=== PATIENT | female | born 1975 | race Caucasian/White ===

== ENCOUNTER 2024-11-22 21:14 | Emergency (ER) | payer BC, SELFPAY ==
--- OUTSIDE RECORDS SUMMARY | 2018-08-26 08:35 | XMS_ITS | Continuity of Care Document ---
Author Organization [facility] Address [address] [place] [address] Phone Care Team Providers Care Corporate Giving Manager Name Role Phone Nahed Anguiano APN, APN Unavailable Unavail able Procedures Procedure Date IO-Holter 24 Hr Echo, Complete, Interp [place] [facility] Product IO-Stress Interpretation, [facility] IO-Stress Supervision, [facility] 017 [place] [facility] Product Advance Directives Directive Yes / No Effective Date File Name No Information Encounters Encounter Description Practice Location Reason(s) For Visit Diagnoses Date Provider Providers Copied on Encounter [facility], [address], [place], [address], [place] tel:[phone] Addison CVM No Information 9 Silvio Dockery. [facility], [address], [place], [place], [id number], [place]. tel:[phone] [facility], [address], [place], [address], [place] tel:[phone] [place] CV No Information 8 Barber Wong. [facility], [address], [place], [place], [id number], [place]. tel:[phone] Referring Provider: Harmony Aparicio [facility] [address], [place], [address]. tel:[phone] [facility], [address], [place], [address], [place] tel:[phone] Reyn[place] CVM No Information Lorna Hernandez. [facility], [address], [place], [place], [id number], [place]. tel:[phone] Referring Provider: Sophia Ronquillo, [address], [place], [address]. tel:[phone] [facility], [address], [place], [address], [place] tel:[phone] Reyn[place] CVM 2nd Floor No Information Deckarthikt DAVID Zhao. [facility], [address], [place], [place], [id number], [place]. tel:[phone] [facility], [address], [place], [address], [place] tel:[phone] Reynaga CVM No Information 7 Tatyana Betancourt. [facility], [address], [place], [place], [id number], [place]. tel:[phone] Referring Provider: Sophia Ronquillo, [address], [place], [address]. tel:[phone] [facility], [address], [place], [address], [place] tel:[phone] Reynaga CVM 2[address] Floor No Information 7 Deckert DAVID Cece. [facility], [address], [place], [place], [id number], [place]. tel:[phone] Family History Family Member Type Diagnosis Age At Onset No Information Payers Payer name Insurance type Covered alliance party ID Halima theodore(s) [facility] [id number] Social History Type Description Quantity Date Captured Comments Alcohol Use Details Unknown Caffeine Use Details Unknown Tobacco Use Status No Information Smoking Status No Information Sex Female Chief Complaint And Reason For Visit No Information Reason For Referral Reason For Referral No Information History Of Present Illness Encounter Date Complaint History Of Prese nt Illness No Information Functional Status Date Functional Assessmen t No Information Instructions Date Instruction Additional Infor mation No Information Assessments Type Assessment Date No Information Patient Care Teams Name Effective Dates (start - stop) Status Members No Information
--- OUTSIDE RECORDS SUMMARY | 2023-06-07 05:15 | XMS_ITS ---
Author Organization [facility] Address [address] [place] [address] Care Team Providers Care Heating And Ventilating Tender Name Role Phone Harmony Aparicio Primary Care Provider Serafin Rea Unavailable [phone] Jacqui Jimenez Unavailable [phone] REASON FOR VISIT 6mn hl prolia Medications Medication SIG (Take, Route, Frequency, Duration) Notes Start Date End Date Status Effexor XR 75 MG 3 capsule with food Orally Once a day Active Calcium 600 MG 1 tablet with meals Orally Once a day Active Vitamin D 1000 UNIT 1 tablet Orally Once a day Active Prolia 60 MG/ML 60mg Subcutaneous in ject q 6 months; Duration: 180 days 10/23/2022 Active buPROPion HCl ER (SR) 150 MG 1 tablet Orally Twice a day Active Venlafaxine HCl ER 225 MG 1 tablet with food Orally Once a day Active hydrOXYzine HCl 10 MG 1 tablet at bedtim e as needed Orally Once a day Active Cephalexin 500 MG 1 tablet Orally Four times a day; Duration: 5 day(s) 05/25/2022 Active ALPRAZolam Active Omeprazole 40 MG 1 capsule 30 minutes before morning meal Orally Once a day Active Encounters Encounter Location Date Provider Diagnosis [facility] [address] [place] [address] 06/07/2023 Jacqui Jimenez Plan Of Treatment No Information Progress Notes * Laura COSTA ADOB: [birth year] (49 yo F)Acc No.[id number]:06/07/2023 Progress Notes Patient: Laura SORIANO Provider: Chrissy Jimenez APRN :1975 A ge:47 Y S ex:Female Date:06/07/2023 Address:[address] [place] [address] BRITTANI LOPES [phone] Pcp:Harmony Aparicio Subjective: * Chief Complaints: * 1 . 6mn hl prolia. * Medical History: * Medications: T aking Venlafaxine HCl ER 225 MG Tablet Extended Release 24 Hour 1 tablet with food Orally Once a day , Taking hydrOXYzine HCl 10 MG Tablet 1 tablet at bedtime as needed Orally Once a day , Taking Cephalexin 500 MG Tablet 1 tablet Orally Four times a day , Taking ALPRAZolam , Taking Omeprazole 40 MG Capsule Delayed Release 1 capsule 30 minutes before morning meal Orally Once a day , Taking buPROPion HCl ER (SR) 150 MG Tablet Extended Release 12 Hour 1 tablet Orally Twice a day , Taking Effexor XR 75 MG Capsule Extended Release 24 Hour 3 capsule with food Orally Once a day , Taking Calcium 600 MG Tablet 1 tablet with meals Orally Once a day , Taking Vitamin D 1000 UNIT Tablet 1 tablet Orally Once a day , Taking Prolia 60 MG/ML Solution Prefilled Syringe 60mg Subcutaneous inject q 6 months Objective: * Vitals: Assessment: Plan: * Treatment: * Care Plan Details* * Electronic signature of Ramona Jimenez APRN on 11/23/2024 at 12:57 AM CDT Sign off status: Pending * Provider: Chrissy Jimenez APRN Date: 0 06/07/2023 Generated for Eden johnson/Al/Shavon on: 0 11/23/2024 12:57 AM CDT
--- OUTSIDE RECORDS SUMMARY | 2023-11-22 04:30 | XMS_ITS ---
Author Organization [facility]ING [facility]AC[facility] [employer] [facility] Address [address] [place] [address] Care Team Providers Care Vice Principal Name Role Phone López Quinn Primary Care Provider REASON FOR VISIT outside labs, pt will bring order in [facility] MEDICATIONS Medication SIG (Take, Route, Frequency, Duration) Notes Start Date End Date Status predniSONE 20 MG 1 tablet Orally BID 06/05/2021 Not-Taking Zithromax 250 MG 2 tablet on the first day, then 1 tablet daily for 4 days Orally Once a day for 5 day(s) 06/05/2021 Not-Taking Mupirocin 2 % apply by topical route 3 times every day a small amount to the affected area External 08/24/2020 Not-Taking Bactrim DS 800-160 MG take 1 tablet by oral route every 12 hours Oral 08/24/2020 Not-Taking valACYclovir HCl 1 GM 2 tablet Orally BI D for one day 06/05/2021 Not-Taking Actonel 150 MG 1 tablet at least 30 minutes before the first food or drink, other than water, of the day Orally for 30 day(s) 09/24/2022 Not-Taking oxyCODONE HCl 5 MG 1 tablet as needed Orally every 6 hrs Not-Taking Terbinafine HCl 250 MG 1 tablet Orally Once a day 09/24/2022 Active Rachel 120 IN THE AM 6O AT NIGHT 09/24/2022 Active hydrOXYzine HCl 10 MG TAKE ONE TO TWO TABLETS BY MOUTH AT BEDTIME Oral for 30 Days Active Wellbutrin SR 150 MG 1 tablet in the morning Orally BID for 60 days Active ALPRAZolam 0.5 MG 1 tablet Orally Twice a day Active Omeprazole 40 MG 1 capsule 30 minutes before morning meal Orally Once a day Active Venlafaxine HCl ER 150 MG 1 tablet with food Orally Once a day Active traZODone HCl 100 MG 1 tablet at bedtime Orally Once a day Active Prolia 60 MG/ML as directed Subcutaneous Active Augmentin 875-125 MG 1 tablet Orally every 12 hrs for 10 day(s) 12/18/2022 Active predniSONE 20 MG 1 tablet Orally twice a day 12/13/2022 Active Zithromax 250 MG as directed Orally 12/13/2022 Active Encounters Encounter Location Date Provider Diagnosis [facility] [address] [place] [address] 11/22/2023 López Quinn Well adult Z00. 00 ASSESSMENTS Encounter Date Diagnosis Assessment Notes Treatment Notes Treatment Clinical Notes Section Notes 11/22/2023 Well adult (ICD-10 - Z00.00) PLAN OF TREATMENT No Information Procedure Notes * Category Sub-Category Detail Notes Venipuncture Venipuncture: verbal consent o btained, Procedure Explained, Pt Position, sitting, 23 g butterfly, RT AC Space, # of Attempts 1, Successful, Standard Precautions Used, Pressure and Clean Bandage Applied, No Redness/Swelling at Site, Pt Tolerated Well Progress Notes * Crystal COSTAB: 5 (48 yo F)Acc No.[id number]:11/22/2023 Patient: Laura COSTA Provider: López Quinn DO :1975 Age:48 Y Sex:Female Date:11/22/2023 Address:[address] [id number] Subjective: * Chief Complaints: * outside labs, pt will bring order in [facility] * Medical History: * Surgical History: * Hospitalization/Major Diagno stic Procedure: * Medications: TakingProlia 60 MG/ML Solution Prefilled Syringe as directed Subcutaneous traZODone HCl 100 MG Tablet 1 tablet at bedtime Orally Once a day Venlafaxine HCl ER 150 MG Tablet Extended Release 24 Hour 1 tablet with food Orally Once a day Omeprazole 40 MG Capsule Delayed Release 1 capsule 30 minutes before morning meal Orally Once a day ALPRAZolam 0.5 MG Tablet 1 tablet Orally Twice a day Wellbutrin SR 150 MG Tablet Extended Release 12 Hour 1 tablet in the morning Orally BID hydrOXYzine HCl 10 MG Tablet TAKE ONE TO TWO TABLETS BY MOUTH AT BEDTIME Oral Rachel Terbinafine HCl 250 MG Tablet 1 tablet Orally Once a day Zithromax 250 MG Tablet as directed Orally predniSONE 20 MG Tablet 1 tablet Orally twice a day Augmentin 875-125 MG tablet 1 tablet Orally every 12 hrs Taking Prolia 60 MG/ML Solution Prefilled Syringe as directed Subcutaneous Taking traZODone HCl 100 MG Tablet 1 tablet at bedtime Orally Once a day Taking Venlafaxine HCl ER 150 MG Tablet Extended Release 24 Hour 1 tablet with food Orally Once a day Taking Omeprazole 40 MG Capsule Delayed Release 1 capsule 30 minutes before morning meal Orally Once a day Taking ALPRAZolam 0.5 MG Tablet 1 tablet Orally Twice a day Taking Wellbutrin SR 150 MG Tablet Extended Release 12 Hour 1 tablet in the morning Orally BID Taking hydrOXYzine HCl 10 MG Tablet TAKE ONE TO TWO TABLETS BY MOUTH AT BEDTIME Oral Taking Rachel Taking Terbinafine HCl 250 MG Tablet 1 tablet Orally Once a day Taking Zithromax 250 MG Tablet as directed Orally Taking predniSONE 20 MG Tablet 1 tablet Orally twice a day Taking Augmentin 875- 125 MG tablet 1 tablet Orally every 12 hrs Not-TakingActonel 150 MG Tablet 1 tablet at least 30 minutes before the first food or drink, other than water, of the day Orally oxyCODONE HCl 5 MG Tablet Abuse-Deterrent 1 tablet as needed Orally every 6 hrs Bactrim DS 800-160 MG Tablet take 1 tablet by oral route every 12 hours Oral Mupirocin 2 % Ointment apply by topical route 3 times every day a small amount to the affected area External Zithromax 250 MG Tablet 2 tablet on the first day, then 1 tablet daily for 4 days Orally Once a day predniSONE 20 MG Tablet 1 tablet Orally BID valACYclovir HCl 1 GM Tablet 2 tablet Orally BID for one day Not-Taking Actonel 150 MG Tablet 1 tablet at least 30 minutes before the first food or drink, other than water, of the day Orally Not-Taking oxyCODONE HCl 5 MG Tablet Abuse-Deterrent 1 tablet as needed Orally every 6 hrs Not-Taking Bactrim DS 800-160 MG Tablet take 1 tablet by oral route every 12 hours Oral Not-Taking Mupirocin 2 % Ointment apply by topical route 3 times every day a small amount to the affected area External Not-Taking Zithromax 250 MG Tablet 2 tablet on the first day, then 1 tablet daily for 4 days Orally Once a day Not-Taking predniSONE 20 MG Tablet 1 tablet Orally BID Not-Taking valACYclovir HCl 1 GM Tablet 2 tablet Orally BID for one day Objective: Assessment: * Assessment: 1. Well adult - Z00.00 Plan: * Treatment: * Procedures: Venipuncture: Venipuncture: verbal consent obtained, Procedure Explained, Pt Position, sitting, 23 g butterfly, RT AC Space, # of Attempts 1, Successful, Standard Precautions Used, Pressure and Clean Bandage Applied, No Redness/Swelling at Site, Pt Tolerated Well. * Procedure Codes: 48116 VENIPUNCT, ROUTINE* * Billing Information: * Visit Code: * Procedure Codes: 40077 VENIPUNCT, ROUTINE*. * Sign off status: Completed true * Provider: López Quinn DO Date: 11/22/2023
--- OUTSIDE RECORDS SUMMARY | 2023-12-06 03:45 | XMS_ITS ---
Author Organization BILLING FACILITY [employer] [facility] Address [address] [place] [address] Care Team Providers Care Navy Airspace Officer Name Role Phone López Quinn Primary Care Provider ALLERGIES No Known Allergies REASON FOR VISIT AHA MEDICATIONS Medication SIG (Take, Route, Frequency, Duration) Notes Start Date End Date Status Wellbutrin SR 150 MG 1 tablet in the morning Orally BID for 60 days Active hydrOXYzine HCl 10 MG TAKE ONE TO TWO TABLETS BY MOUTH AT BEDTIME Oral for 30 Days Active Rachel 120 IN THE AM 6O AT NIGHT 09/24/2022 Active Prolia 60 MG/ML as directed Subcutaneous Active traZODone HCl 100 MG 1 tablet at bedtime Orally Once a day Active Venlafaxine HCl ER 150 MG 1 tablet with food Orally Once a day Active Omeprazole 40 MG 1 capsule 30 minutes before morning meal Orally Once a day Active ALPRAZolam 0.5 MG 1 tablet Orally Twic e a day Active Triamcinolone Acetonide 0.1 % 1 application Externally Two times a Week Active Zepbound 5 MG/0.5ML 0.5 mL Subcutaneous Active SOCIAL HISTORY Tobacco Use: Social History Observation Description Date Details (start date - stop date) Former Smoker NA - NA Sex Assigned At : Social History Observation Description Sex Assigned At Unknown Tobacco Use/Smoking Question Answer Notes Are you a former user VITAL SIGNS Temperature 97.2 degrees Fahrenheit 12/06/19 24 Heart Rate 97 /min 12/06/2023 Oximetry 98 % 12/06/2023 Blood pressure systolic 116 mm Hg 12/06/19 24 Blood pressure diastolic 78 mm Hg 024 Weight 144 lbs 12/06/2023 Height 65 in 12/06/2023 BMI 23.96 12/06/2023 Weight-kg 65.32 kg 12/06/2023 Encounters Encounter Location Date Provider Diagnosis [facility] [address] [place] [address] 12/06/2023 López Quinn Well adult exam Z00. 00 ASSESSMENTS Encounter Date Diagnosis Assessment Notes Treatment Notes Treatment Clinical Notes Section Notes 12/06/2023 Well adult exam (ICD-10 - Z00.00) Her pap and mammo are up to date. Cologuard was done. Labs are back. PLAN OF TREATMENT No Information Progress Notes * Crystal COSTAB: 5 (48 yo F)Acc No.[id number]:12/06/2023 Patient: Laura COSTA Provider: López Quinn DO :1975 Age:48 Y Sex:Female Date:12/06/2023 Address:[address] [place], [place] [id number] Subjective: * Chief Complaints: * 1. AHA. * HPI: Depression/Anxiety Screening: PHQ-2 (2015 Edition)* Little interest or pleasure in doing things? Not at all, Feeling down, depressed or hopeless? Not at all, Total score: 0. Depression Screening: TANK-7 (2018 Edition) Feeling nervous, anxious, or on edge Not at all, Not being able to stop or control worrying Not at all, Worrying too much about different things Not at all, Trouble relaxing Not at all, Being so restless that it is hard to sit still Not at all, Becoming easily annoyed or irritable Not at all, Feeling afraid as if something awful might happen Not at all, Total TANK-7 Score 0, Interpretation of Total (0 to 4) No Anxiety. *: Patient is here today for an AHA. SHe is doing well and has no other concerns today. Please refer to the negative ROS. * ROS: Patient denies any headaches, visual changes, chest pain, shortness of breath, syncope, abdominal pain, urinary symptoms or neurological symptoms. * Medical History: Osteoporosis. * Surgical History: open reduction internal fixation (ORIF) Right leg 10/14/21. * Family History: Father: diagnosed with Hypertension. Migrated Family History: diagnosed with Hypertension. Maternal G F: diagnosed with Hypertension. * Social History: Tobacco Use: Tobacco Use/Smoking Are you a former user. Habits (drugs/alcohol/caffeine): Caffeine: yes . Alcohol: no . * Medications: Taking Triamcinolone Acetonide 0.1 % Cream 1 application Externally Two times a Week , Taking Zepbound 5 MG/0.5ML Solution Auto-injector 0.5 mL Subcutaneous , Taking Prolia 60 MG/ML Solution Prefilled Syringe as directed Subcutaneous , Taking traZODone HCl 100 MG Tablet 1 tablet at bedtime Orally Once a day , Taking Venlafaxine HCl ER 150 MG Tablet Extended Release 24 Hour 1 tablet with food Orally Once a day , Taking Omeprazole 40 MG Capsule Delayed Release 1 capsule 30 minutes before morning meal Orally Once a day , Taking ALPRAZolam 0.5 MG Tablet 1 tablet Orally Twice a day , Taking Wellbutrin SR 150 MG Tablet Extended Release 12 Hour 1 tablet in the morning Orally BID , Taking hydrOXYzine HCl 10 MG Tablet TAKE ONE TO TWO TABLETS BY MOUTH AT BEDTIME Oral , Taking Rachel , Discontinued Terbinafine HCl 250 MG Tablet 1 tablet Orally Once a day , Discontinued Zithromax 250 MG Tablet as directed Orally , Discontinued predniSONE 20 MG Tablet 1 tablet Orally twice a day , Discontinued Augmentin 875-125 MG tablet 1 tablet Orally every 12 hrs , Discontinued Actonel 150 MG Tablet 1 tablet at least 30 minutes before the first food or drink, other than water, of the day Orally , Discontinued oxyCODONE HCl 5 MG Tablet Abuse-Deterrent 1 tablet as needed Orally every 6 hrs , Discontinued Bactrim DS 800-160 MG Tablet take 1 tablet by oral route every 12 hours Oral , Discontinued Mupirocin 2 % Ointment apply by topical route 3 times every day a small amount to the affected area External , Discontinued Zithromax 250 MG Tablet 2 tablet on the first day, then 1 tablet daily for 4 days Orally Once a day , Discontinued predniSONE 20 MG Tablet 1 tablet Orally BID , Discontinued valACYclovir HCl 1 GM Tablet 2 tablet Orally BID for one day , Medication List reviewed and reconciled with the patient * Allergies: N.K.A. Objective: * Vitals: Temp:97.2F, HR:97, Oxygen sat:98%, BP:116/78mm Hg, Wt:144lbs, Wt Chg: -45 lbs, Wt Chg %: -23.81%, Ht:65in, BMI:23.96, Wt-k.32 kg. * Examination: General Examination *: GENERAL APPEARANCE: alert and oriented, no acute distress. HEAD: normocephalic. EYES: extraocular movements intact, pupils equal/round/reactive to light. EARS: auditory canal clear, light reflex present, tympanic membrane intact. SINUSES: non-tender. NOSE: nares patent, no lesions. ORAL CAVITY: mucosa moist, no lesions. THROAT: no erythema, tonsils normal, uvula midline. NECK/THYROID: neck supple, no thyromegaly, no carotid bruits. LYMPH NODES: no anterior cervical adenopathy. HEART: regular rate and rhythm, no murmurs, no gallops. LUNGS: clear to auscultation, good air movement, no respiratory distress. CHEST: no deformity. ABDOMEN: soft, non-tender, normal bowel sounds, non-tender. BACK: full range of motion. EXTREMITIES: no edema. PERIPHERAL PULSES: 2+ throughout. NEUROLOGIC: alert, cooperative, oriented x 3, cranial nerves II-XII grossly normal. MUSCULOSKELETAL: no swelling or deformity. PSYCH: affect normal, cognitive function intact, mood normal. Assessment: * Assessment: 1. Well adult exam - Z00.00 (Primary) Her pap and mammo are up to date. Cologuard was done. Labs are back. Plan: * Treatment: * Procedure Codes: 3014F Breast Cancer Screening, 3015F Cervical Cancer Screening, 3017F Colorectal Cancer Screening, 3351F Depression Screening, 61683 Anxiety Screening * Billing Information: * Visit Code: 83155 Prev visit es tage 40 - 64 comprehensive exam. * Procedure Codes: 3014F Breast Cancer Screening. 3015F Cervical Cancer Screening. 3017F Colorectal Cancer Screening. 3351F Depression Screening - NEGATIVE Screening (PHQ9 <10). 13717 Anxiety Screening. * Sign off status: Completed true * Provider: López Quinn DO Date: 12/06/2023 History and Physical Notes * HPI (History of Present Illness) Category Sub-Category Detail Notes Category Not es Depression/Anxiety Screening PHQ-2 (2015 Edition)* Little interest or pleasure in doing things?: Not at all Feeling down, depressed or hopeless?: No t at all Total score:: 0 Depression Screening TANK-7 (2018 Edition) Feelin g nervous, anxious, or on edge: Not at all Not being able to stop or control worryi ng: Not at all Worrying too much about different things : Not at all Trouble relaxing: Not at all Being so restless that it is hard to sit still: Not at all Becoming easily annoyed or irritable: No t at all Feeling afraid as if something awful kenisha ht happen: Not at all Total TANK-7 Score: 0 Interpretation of Total: (0 to 4) No Anx iety * Patient is here today for an AHA. SHe is doing well and has no other concerns today. Please refer to the negative ROS. Examination Category Sub-Category Detail Notes Category Not es General Examination * GENERAL APPEARANCE: alert and oriented, no acute distress HEAD: normocephalic EYES: extraocular movement s intact, pupils equal/round/reactive to light EARS: auditory canal clear , light reflex present, tympanic membrane intact NOSE: nares patent, no les ions ORAL CAVITY: mucosa moist, no les ions THROAT: no erythema, tonsils normal, uvula midline NECK/THYROID: neck supple, no thyr omegaly, no carotid bruits LYMPH NODES: no anterior cervical adenopathy HEART: regular rate and rhy thm, no murmurs, no gallops LUNGS: clear to auscultatio n, good air movement, no respiratory distress CHEST: no deformity ABDOMEN: soft, non-tender, no rmal bowel sounds, non-tender BACK: full range of motion MUSCULOSKELETAL: no swelling or defor mity EXTREMITIES: no edema PERIPHERAL PULSES: 2+ throughout NEUROLOGIC: alert, cooperative, oriented x 3, cranial nerves II-XII grossly normal PSYCH: affect normal, cogni tive function intact, mood normal SINUSES: non-tender
--- OUTSIDE RECORDS SUMMARY | 2023-12-13 05:30 | XMS_ITS ---
Author Organization [facility] [employer] Address [address] [place] [address] Care Team Providers Care Wet Process Miller Head Name Role Phone Harmony Aparicio Primary Care Provider Serafin Rea Unavailable [phone] REASON FOR VISIT 6 mo labs at [facility] Medications Medication SIG (Take, Route, Frequency, Duration) Notes Start Date End Date Status buPROPion HCl ER (SR) 150 MG 1 tablet Orally Twice a day Active Effexor XR 75 MG 3 capsule with food Orally Once a day Active Calcium 600 MG 1 tablet with meals Orally Once a day Active Vitamin D 1000 UNIT 1 tablet Orally Once a day Active Prolia 60 MG/ML 60mg Subcutaneous in ject q 6 months; Duration: 180 days 10/23/2022 Active ALPRAZolam Active Omeprazole 40 MG 1 capsule 30 minutes before morning meal Orally Once a day Active Cephalexin 500 MG 1 tablet Orally Four times a day; Duration: 5 day(s) 05/25/2022 Active Venlafaxine HCl ER 225 MG 1 tablet with food Orally Once a day Active hydrOXYzine HCl 10 MG 1 tablet at bedtim e as needed Orally Once a day Active Aspirin 325 MG 1 tablet Orally Once a day Active Encounters Encounter Location Date Provider Diagnosis [facility] [address] [place] [address] 12/13/2023 Serafin Colbert Plan Of Treatment No Information Progress Notes * Laura COSTA ADOB: [birth year] (49 yo F)Acc No.[id number]:12/13/2023 Progress Notes Patient: Laura SORIANO Provider: Chrissy Colbert PA-C :1975 A ge:48 Y S ex:Female Date:12/13/2023 Address:[address] [place] [address] [phone] Pcp:Harmony Aparicio Subjective: * Chief Complaints: * 1 . 6 mo labs at [facility]. * Medical History: * Medications: T aking Aspirin 325 MG Tablet 1 tablet Orally Once a day , Taking Venlafaxine HCl ER 225 MG Tablet Extended [...] Care Plan Details* * Electronic signature of Dk Colbert on 11/23/2024 at 12:56 AM CDT Sign off status: Pending * Provider: Chrissy Colbert PA-C Date: 0 12/13/2023 Generated for Eden johnson/Al/Shavon on: 11/23/2024 12:56 AM CDT
--- OUTSIDE RECORDS SUMMARY | 2024-02-26 08:30 | XMS_ITS ---
Author Organization BILLING FACILITY [facility] Address [address] [place] [address] Care Team Providers Care Electrical Lineworker Name Role Phone López Quinn Primary Care Provider Lou Ortega Unavailable [phone] ALLERGIES No Known Allergies REASON FOR VISIT Possible pink eye Right eye, swelling, redness x today MEDICATIONS Medication SIG (Take, Route, Frequency, Duration) Notes Start Date End Date Status Venlafaxine HCl ER 150 MG 1 tablet with food Orally Once a day Active traZODone HCl 100 MG 1 tablet at bedtime Orally Once a day Active Wellbutrin SR 150 MG 1 tablet in the morning Orally BID for 60 days Active ALPRAZolam 0.5 MG 1 tablet Orally Twic e a day Active Omeprazole 40 MG 1 capsule 30 minutes before morning meal Orally Once a day Active Zepbound 5 MG/0.5ML 0.5 mL Subcutaneous Active Triamcinolone Acetonide 0.1 % 1 application Externally Two times a Week Active Fluconazole 150 MG 1 tablet when antibiotics are complete, then repeat in 72 hours Orally 02/26/2024 Active predniSONE 20 MG 1 tablet Orally ever y 12 hours for 5 days 02/26/2024 Active Prolia 60 MG/ML as directed Subcutaneous Active Amoxicillin-Pot Clavulanate 875-125 MG 1 tablet Orally every 12 hrs for 10 days 02/26/2024 Active predniSONE 20 MG 1 tablet Orally ever y 12 hours for 5 days 02/26/2024 Active Rachel 120 IN THE AM 6O AT NIGHT 09/24/2022 Active hydrOXYzine HCl 10 MG TAKE ONE TO TWO TABLETS BY MOUTH AT BEDTIME Oral for 30 Days Active Fluconazole 150 MG 1 tablet when antibiotics are complete, then repeat in 72 hours Orally 02/26/2024 Active VITAL SIGNS Temperature 97.2 degrees Fahrenheit 02/26/20 24 Heart Rate 73 /min 02/26/2024 Oximetry 98 % 02/26/2024 Blood pressure systolic 120 mm Hg 02/26/20 24 Blood pressure diastolic 84 mm Hg 024 Weight 143 lbs 02/26/2024 Height 65 in 02/26/2024 BMI 23.79 02/26/2024 Weight-kg 64.86 kg 02/26/2024 Encounters Encounter Location Date Provider Diagnosis [facility] [address] [place] [address] 02/26/2024 Lou Ortega Dermatitis L30. 9 ASSESSMENTS Encounter Date Diagnosis Assessment Notes Treatment Notes Treatment Clinical Notes Section Notes 02/26/2024 Dermatitis (ICD-10 - L30.9) Meds sent to our pharmacy, she will call with any concerns. Antibiotics dispensed as well due to her history. Recommended she f/u with her block chopper hand PLAN OF TREATMENT Medication Medication Name Sig Start Date Stop Date Notes Fluconazole 150 MG 1 tablet when antibi otics are complete, then repeat in 72 hours Orally 02/26/2024 predniSONE 20 MG 1 tablet Orally ever y 12 hours for 5 days 02/26/2024 Amoxicillin-Pot Clavulanate 875-125 MG 1 tablet Orally every 12 hrs for 10 days 02/26/2024 predniSONE 20 MG 1 tablet Orally ever y 12 hours for 5 days 02/26/2024 Fluconazole 150 MG 1 tablet when antibi otics are complete, then repeat in 72 hours Orally 02/26/2024 Treatment Notes Assessment Notes Dermatitis Meds sent to our [facility], she will call with any concerns. Antibiotics dispensed as well due to her history. Recommended she f/u with her block chopper hand Progress Notes * Treva COSTAJoseB: 5 (48 yo F)Acc No.[id number]:02/26/2024 Patient: Laura COSTA Provider: Lou Ortega NP :1975 Age:48 Y Sex:Female Date:02/26/2024 Address:[address] [place], [place] [id number] Pcp:López Quinn Subjective: * Chief Complaints: * 1. Possible pink eye Right eye, swelling, redness x today. * HPI: Depression/Anxiety Screening: PHQ-2 (2015 Edition)* [...] Total (0 to 4) No Anxiety. *: Laura is here with itching and redness on her right upper eyelid. She also has a couple on her bilateral arms. she has a hx of this in the past. Was initially thought to be bug bites, but she continued to get them randomly. Has been seen by derm and the areas have been biopsied. Told her they were inflammation. She has been hospitalized in the past for cellulitis following this in the past. She is not having any fevers. * ROS: General/Constitutional: General See HPI. * Medical History: Osteoporosis. * Surgical History: open reduction internal fixation (ORIF) Right leg 10/14/21. * Family History: Father: diagnosed with Hypertension. Migrated Family History: diagnosed with Hypertension. Maternal G F: diagnosed with Hypertension. * Medications: Taking Triamcinolone Acetonide 0.1 % [...] AT BEDTIME Oral , Taking Rachel , Medication List reviewed and reconciled with the patient * Allergies: N.K.A. Objective: * Vitals: Temp:97.2F, HR:73, Oxygen sat:98%, BP:120/84mm Hg, Wt:143lbs, Wt Chg: -1 lbs, Wt Chg %: -0.69%, Ht:65in, BMI:23.79, Wt-k.86 kg. * Examination: General Examination *: GENERAL APPEARANCE: See HPI. SKIN: Erythema noted to the right upper eyelid. It is not warm to the touch and appearing to be inflammation as opposed to a secondary infection. Assessment: * Assessment: 1. Dermatitis - L30.9 (Primary) Plan: * Treatment: * Billing Information: * Visit Code: 94682 Level 4 Est Patient Acute Care. * Procedure Codes: * Sign off status: Completed true * Provider: Lou Ortega NP Date: 02/26/2024 History and Physical Notes * HPI (History [...] (0 to 4) No Anx iety * Laura is here wi th itching and redness on her right upper eyelid. She also has a couple on her bilateral arms. she has a hx of this in the past. Was initially thought to be bug bites, but she continued to get them randomly. Has been seen by derm and the areas have been biopsied. Told her they were inflammation. She has been hospitalized in the past for cellulitis following this in the past. She is not having any fevers Examination Category Sub-Category Detail Notes Category Not es General Examination * GENERAL APPEARANCE: See HPI SKIN: Erythema noted to th e right upper eyelid. It is not warm to the touch and appearing to be inflammation as opposed to a secondary infection
[2024-11-22 21:24] VITALS: BP 125/74; PULSE 86; RESP 16; TEMP 36.1; O2SAT 97; BMI 23.2
--- NOTE | 2024-11-22 22:05 | CRLHL7_ITS ---
For Patients: As a result of the Cures Act, medical imaging exams and procedure reports are released immediately into your electronic medical record. You may view this report before your referring provider. If you have questions, please contact your health care provider. Indication: Trauma. Technique: Left knee, 3 views. Comparison: None. Findings/Impression: Bones: Alignment is normal. No displaced fractures or bone lesions. Joint spaces: Mild tricompartmental degenerative changes. Soft tissues: Unremarkable. Dictated by Martin Ontiveros MD @ 11/22/2024 11:56:35 PM (Electronically Signed)
--- NOTE | 2024-11-23 00:24 | ED_ITS ---
HPI - Extremity Injury (Lower) General Date Seen: 11/23/24 Chief Complaint: Extremity Pain/Injury, Lower Stated Complaint: Left kneecap fracture concerns Time Seen by Provider: 11/23/24 00:09 Source: patient Mode of arrival: wheelchair Limitations: no limitations History of Present Illness HPI Narrative: Patient is a 49-year-old female presenting for left knee pain. She states earlier today she was on a hike when she fell so at [employer] [place] or water fall. Did not realize she hurt her knee and 1st and was able to walk but not long after she was unable to stand due to the pain. Has not been able to put much weight on the pain since then. States the pain is 10/10 pain. Has not had previous injuries to this knee. Denies any other injuries that occurred today. Took ibuprofen without any improvement in her pain. Is able to bend the knee but it is painful to do so. Denies any numbness. Also the pain she states feels to be with in the knee and just superior to the patella. Cannot definitively pinpoint the pain within the knee. Related Data Allergies Allergy/AdvReac Type Severity Reaction Status Date / Time No Known Drug Allergies Allergy Verified 11/22/24 21:29 Review of Systems Narrative: Pertinent systems reviewed and were negative unless stated in HPI Exam Narrative: Exam Narrative: Const: Well-nourished, Well-developed, in mild distress Eyes: PERRL, no conjunctival injection, and symmetrical lids HENT: Atraumatic external nose and ears. Moist mucous membranes. CVS: Dorsalis pedis pulse 2+ bilaterally MSK:Extremities w/o deformity, has full range of motion to left knee but it is painful. Tenderness noted superior to the patella. No tenderness noted to the joint lines. No tenderness noted to rest of extremities, chest wall, spine, hips. Normal Arnold's and posterior draw test. Patient was in quite a bit of pain with movements so I did not do Otto test. Skin: Warm, Dry. No rashes or lesions. Neuro: Normal Muscle tone, No focal neurological deficits. Psych: Awake, Alert, & Oriented x3. Appropriate mood and affect. Const: Vital Signs, click to edit/add: Vital Signs - 24 hr 11/22/24 21:24 Temperature 97.0 F L Pulse Rate [Left P ulse Oximeter] 86 Respiratory Rate 16 Blood Pressure [Ri ght Upper Arm] 125/74 Pulse Oximetry 97 Oxygen Delivery Me thod Room Air Course Vital Signs Vital signs: Initial Vital Signs Temperature 97.0 F L 11/22/24 21:24 Temperature Source Temporal Artery Scan 11/22/24 21:24 Pulse Rate 86 11/22/24 21:24 Pulse Rhythm Regular 11/22/24 21:24 Respiratory Rate 16 11/22/24 21:24 Blood Pressure 125/74 11/22/24 21:24 Blood Pressure Mean 91 11/22/24 21:24 Blood Pressure Position Sitting 11/22/24 21:24 Pulse Oximetry 97 11/22/24 21:24 Oxygen Delivery Method Room Air 11/22/24 21:24 Vital Signs Temperature 97.0 F L 11/22/24 21:24 Pulse Rate 86 11/22/24 21:24 Respiratory Rate 16 11/22/24 21:24 Blood Pressure 125/74 11/22/24 21:24 Pulse Oximetry 97 11/22/24 21:24 Oxygen Delivery Method Room Air 11/22/24 21:24 Temperature 97.0 F L 11/22/24 21:24 Pulse Rate 86 11/22/24 21:24 Respiratory Rate 16 11/22/24 21:24 Blood Pressure 125/74 11/22/24 21:24 Pulse Oximetry 97 11/22/24 21:24 Oxygen Delivery Method Room Air 11/22/24 21:24 MDM - Extremity Injury (Lower) MDM Narrative Medical decision making narrative: Patient is 49-year-old female presenting with left knee pain. No other injuries noted. X-ray the left knee was ordered in triage. By time I arrived knee x-ray was done and results were back showing no acute fractures. She does have full range of motion the needed do not believe there is any tendon injuries. There is the possibility of a meniscus or ligamentous injury. No signs of fractures. Overall she is doing well in can be discharged. She is having quite a bit of pain still the else I will order some oxycodone via [facility]. She will follow- up with orthopedics if pain persists. Imaging Data Knee x-ray: Attestation: I have reviewed the pertinent imaging results. Radiologist's impression: Bones: Alignment is normal. No displaced fractures or bone lesions. Joint spaces: Mild tricompartmental degenerative changes. Soft tissues: Unremarkable. Dictated by Martin Ontiveros MD @ 11/22/2024 11:56:35 PM Discharge Plan Discharge Clinical Impression: Injury of knee, left Qualifiers: Encounter type: initial encounter Qualified Code(s): S89.92XA - Unspecified injury of left lower leg, initial encounter Patient Disposition: Home, Self-Care Condition: Stable Instructions: Knee Pain (ED) Additional Instructions: There are no signs of fractures at this time. If pain does persist I do recommend following up with [facility]. Call them at [phone]. Take Tylenol and ibuprofen for pain. If that is not helping use the oxycodone Stand Alone Forms: MyHealth Info Instructions
[2024-11-23 00:36] VITALS: BP 126/74; PULSE 84; RESP 16; O2SAT 98
--- OUTSIDE RECORDS SUMMARY | 2024-11-23 00:57 | XMS_ITS | Patient Health Record ---
Author Organization [facility] [employer] Address [address] [place] [address] Care Team Providers Care Roller Maker Name Role Phone Harmony Aparicio Primary Care Provider Serafin Rea [phone] Allergies No Known Allergies Reason For Referral No Information Medications Medication SIG (Take, Route, Frequency, Duration) Notes Start Date End Date Status buPROPion HCl ER (SR) 150 MG 1 tablet Orally Twice a day Active Effexor XR 75 MG 3 capsule with food Orally Once a day Active Calcium 600 MG 1 tablet with meals Orally Once a day Active Vitamin D 1000 UNIT 1 tablet Orally Once a day Active ALPRAZolam Active Omeprazole 40 MG 1 capsule 30 minutes before morning meal Orally Once a day Active Cephalexin 500 MG 1 tablet Orally Four times a day; Duration: 5 day(s) 05/25/2022 Active Prolia 60 MG/ML 60mg Subcutaneous in ject q 6 months; Duration: 180 days 10/23/2022 Active Aspirin 325 MG 1 tablet Orally Once a day Active Venlafaxine HCl ER 225 MG 1 tablet with food Orally Once a day Active hydrOXYzine HCl 10 MG 1 tablet at bedtim e as needed Orally Once a day Active Social History Tobacco Use: Social History Observation Description Date Details (start date - stop date) Former Smoker NA - NA Tobacco Use/Smoking Question Answer Notes Are you a former smoker Section Notes: Ex-smoker with 30-year histo ry of smoking. Quit recently. Denied alcoholism. Ex-smoker with 30-year histo ry of smoking. Quit recently. Denied alcoholism. Ex-smoker with 30-year histo ry of smoking. Quit recently. Denied alcoholism. Ex-smoker with 30-year histo ry of smoking. Quit recently. Denied alcoholism. Problems Problem Type SNOMED Code ICD Code Onset Dates Problem Status W/U Status Risk Notes Problem Osteoporosis (46148815) Osteoporosis (733.00) Active confirmed Problem Osteoporosis (85626318) Osteoporosis (M81.0) Active confirmed Problem Vitamin D deficiency (68540403) Vitamin D deficiency (E55.9) Active confirmed Problem Monoclonal gammopathy of uncertain significance (disorder) (776241193) MGUS (monoclonal gammopathy of unknown significance) (D47.2) Active confirmed Problem Abnormality on bone densitometry (R93.7) Active confirmed Problem Age-related osteoporosis (405901575) Post-menopausal osteoporosis (M81.0) Active confirmed Problem Osteoporotic hip fracture, right, with routine healing, subsequent encounter (M80.051D) Active confirmed Encounters Encounter Location Date Provider [facility] [address] [address] 12/13/2023 Serafin Colbert Plan Of Treatment Future Test Test Name Order Date BASIC METABOLIC PANEL 11/16/2022 VITAMIN D, 25-OH (ROUTINE) 11/16/2022 CALCIUM, SERUM 12/06/2023 CREATININE - active 12/06/2023 VITAMIN D, 25-OH (ROUTINE) 12/06/2023 ALBUMIN 12/06/2023 Insurance Providers Payer Name Payer Address Payer Phone Subscriber Number Group Number Insured Name Patient Relationship to Insured Coverage Start Date Coverage End Date [facility] [id number] [place] [address] [id number] Patrick Costa Spouse - patient is the spouse of the insured Medications Administered Medication Instructions Date of Administration Dosage Notes PROLIA (Outside Pharmacy) 12/07/2022 60 mg Manf: [employer] Lot # [id number] PROLIA (Outside Pharmacy) 06/14/2023 60 mg Lot:[id number] Medical (General) History Medical History History ICD Code Osteoporosis. Depression. Benign essenti al tremors Surgical History Surgery Date(Month/Year) Tubial ligation 1997. Tubal . Cholecystecomy 1997. Femur fracture repair. Tonsillectomy and adenoidectomy.
--- OUTSIDE RECORDS SUMMARY | 2024-11-23 00:57 | XMS_ITS | Patient Health Record ---
Author Organization BILLING FACILITY [facility] Address [address] [place] [address] Care Team Providers Care Reception Name Role Phone López Quinn Primary Care Provider Lou Ortega Unavailable [phone] ALLERGIES No Known Allergies REASON FOR REFERRAL No Information MEDICATIONS Medication SIG (Take, Route, Frequency, Duration) Notes Start Date End Date Status Amoxicillin-Pot Clavulanate 875-125 MG 1 tablet Orally every 12 hrs for 10 days 02/26/2024 Active predniSONE 20 MG 1 tablet Orally ever y 12 hours for 5 days 02/26/2024 Active Fluconazole 150 MG 1 tablet when antibiotics are complete, then repeat in 72 hours Orally 02/26/2024 Active Venlafaxine HCl ER 150 MG 1 tablet with food Orally Once a day Active traZODone HCl 100 MG 1 tablet at bedtime Orally Once a day Active Prolia 60 MG/ML as directed Subcutaneous Active hydrOXYzine HCl 10 MG TAKE ONE [...] application Externally Two times a Week Active Rachel 120 IN THE AM 6O AT NIGHT 09/24/2022 Active predniSONE 20 MG 1 tablet Orally ever y 12 hours for 5 days 02/26/2024 Active Fluconazole 150 MG 1 tablet when antibiotics are complete, then repeat in 72 hours Orally 02/26/2024 Active SOCIAL HISTORY Tobacco Use: Social History Observation Description Date Details (start date - stop date) Former Smoker NA - NA Sex Assigned At : Social History Observation Description Sex Assigned At Unknown Tobacco Use/Smoking Question Answer Notes Are you a former user PROBLEMS Problem Type ICD Code Onset Dates Problem Status W/U Status Risk SNOMED Code Notes Problem Colon cancer screening (Z12.11) Active confirmed Problem Well adult (Z00.00) Active confirmed Well adult (330418740) Problem Osteoporosis (M81.0) Active confirmed Osteoporosis (07333046) Problem Fever (R50.9) Active confirmed Fever (807144473) Problem Fever, unspecified fever cause (R50.9) Active confirmed 139748488 Problem Cough (R05.9) Active confirmed 68482763 VITAL SIGNS Heart Rate 73 /min 02/26/2024 Temperature 97.2 degrees Fahrenheit 02/26/2024 Oximetry 98 % 02/26/2024 Blood pressure diastolic 84 mm Hg 02/26/2024 Weight-kg 64.86 kg 02/26/2024 Height 65 in 02/26/2024 Blood pressure systolic 120 mm Hg 02/26/2024 Weight 143 lbs 02/26/2024 BMI 23.79 02/26/2024 Encounters Encounter Location Date Provider Diagnosis [facility] [address] [place] [address] 12/06/2023 López [place] Well adult exam Z00. 00 [facility] [address] [place] [address] 02/26/2024 Lou [place] Dermatitis L30.9 ASSESSMENTS Encounter Date Diagnosis Assessment Notes Treatment Notes Treatment Clinical Notes Section Notes 12/06/2023 Well adult exam (ICD-10 - Z00.00) Her pap and mammo are up to date. Cologuard was done. Labs are back. 02/26/2024 Dermatitis (ICD-10 - L30.9) Meds sent to our pharmacy, she will call with any concerns. Antibiotics dispensed as well due to her history. Recommended she f/u with her director of surgery PLAN OF TREATMENT Pending Test Test Name Order Date Rapid Strep 12/13/2022 Clarity Covid Test 12/13/2022 Future Test Test Name Order Date Hemoglobin A1c 03/15/2021 Lipid Panel 03/15/2021 Cologuard 09/24/2022 Insurance Providers Payer Name Payer Address Payer Phone Subscriber Number Group Number Insured Name Patient Relationship to Insured Coverage Start Date Coverage End Date [employer] [address] [employer] [address] [place], [place] [id number] Trip Costa Spouse - patient is the spouse of the insured MEDICAL (GENERAL) HISTORY Medical History History ICD Code osteoporosis Surgical History Surgery Date(Month/Year) open reduction internal fixation (ORIF) Right leg 10/14/21
== END 2024-11-23 01:14 | disposition home or self-care (01) ==
PROVIDERS: Emergency Provider Student in an Organized Health Care Education/Training Program
DX: S89.92XA Unspecified injury of left lower leg, initial encounter (principal); W18.30XA Fall on same level, unspecified, initial encounter; Y93.01 Activity, walking, marching and hiking
CPT/HCPCS: 73562; 99283